=== PATIENT | male | born 1940 | race Caucasian/White ===

== ENCOUNTER 2016-05-08 14:06 | Observation (INO) | payer OTHER ==
[~2016-05-08] VITALS: Ht 167.6 cm; Wt 99.0 kg
[~2016-05-08 14:06] MED LIST: AMLODIPINE BESY10 MG PO; ASPIRIN325 MG PO; CRANBERRY200 MG PO; FLOMAX0.4 MG PO; ISOSORBIDE MONO60 MG PO; LANTUS 3 M100 UNITS1 SC; LIPITOR80 MG PO; LOPRESSOR100 M1 PO; NIACIN1000 MG PO; NITROSTAT0.4 MG SL; NOVOLOG100 UNIT/1 SC; PLAVIX75 MG PO; PRINIVIL5 MG PO; ZANTAC150 MG PO
[2016-05-08] MEDS ORDERED: AMITIZA8 MICROGRA PO (14:28)
[2016-05-08 14:36] LABS: BASOPHIL COUNT 0.1 K/uL (0-0.1); EOSINOPHIL (%) 2.3 % (0-5); EOSINOPHIL COUNT 0.2 K/uL (0-0.3); HEMATOCRIT 39.6 % (38.0-50.0); IMMATURE GRANULOCYTE (%) 0.6 % (0.0-0.7); IMMATURE GRANULOCYTE COUNT 0.1 K/uL; LYMPHOCYTE COUNT 1.1 K/uL (1.0-2.8); MCH 30.6 PG (29.0-34.0); MCHC 31.8 G/DL (30.0-36.0); MCV 96.1 FL (86-99); MEAN PLAT.VOLUME 10.5 uM^3 (9.0-12.4); MONOCYTE (%) 9.7 % (3-12); MONOCYTE COUNT 0.8 K/uL (0-0.8); NEUTROPHIL (%) 72.8 % (45-76); PLATELET COUNT 203 K/uL (156-360); RBC DIS.WIDTH-CV 14.3 % (11.8-14.6); RBC DIS.WIDTH-SD 50.4 % (39-53); RED BLOOD COUNT 4.12 M/uL (4.00-5.50); WHITE BLOOD COUNT 8.3 K/uL (4.1-10.2)
[2016-05-08 14:45] LABS: CHLORIDE 107 mEq/L (99-109); INTER. NORMALIZED RATIO 1.1; POTASSIUM 4.4 mEq/L (3.7-5.4); PROTHROMBIN TIME 11.4 (9.2-11.2); PTT 24.4 (25-32); SODIUM 142 mEq/L (136-147)
[2016-05-08 14:47] LABS: GLUCOSE 134 mg/dL (70-99)
[2016-05-08 14:48] LABS: ANION GAP 11 MEQ/L (2-14)
[2016-05-08 14:51] LABS: GFR ESTIMATE (CALCULATED) 58 mL/min/; UREA NITROGEN (BUN) 28 mg/dL (9-23)
[2016-05-08 14:57] LABS: TROP-I INTERPRETATION NEGATIVE; TROPONIN-I 0.02 ng/mL (0.0-0.30)
[2016-05-08] MEDS ORDERED: NOVOLOG 10100 UNITS/ SC (15:42)
[2016-05-08] MEDS ORDERED: LANTUS 10100 UNITS/ SC (15:43)
[2016-05-08 20:08] VITALS: BP 113/56
[2016-05-08 21:42] LABS: POINT-OF-CARE METER ID UU13113831
[2016-05-08 21:56] LABS: TROP-I INTERPRETATION NEGATIVE; TROPONIN-I 0.02 ng/mL (0.0-0.30)
[2016-05-09 00:10] VITALS: BP 115/58
[2016-05-09 02:49] LABS: TROP-I INTERPRETATION NEGATIVE; TROPONIN-I < 0.01 ng/mL (0.0-0.30)
[2016-05-09 03:58] VITALS: BP 111/56
[2016-05-09 08:04] LABS: POINT-OF-CARE METER ID UU13113831
[2016-05-09 08:22] VITALS: BP 96/51
[2016-05-09 12:06] VITALS: BP 132/62
== END 2016-05-09 13:28 | disposition home or self-care (01) ==
LOC: EME 14:06 → 5WEST 16:26 → EDOF 16:26 → 5WEST 20:07
PROVIDERS: Emergency Medicine; Hospitalist; Internal Medicine
DX: R07.89 Other chest pain (principal); E86.0 Dehydration; I25.10 Atherosclerotic heart disease of native coronary artery without angina pectoris; I10 Essential (primary) hypertension; E11.9 Type 2 diabetes mellitus without complications; E78.5 Hyperlipidemia, unspecified; I73.9 Peripheral vascular disease, unspecified; I25.2 Old myocardial infarction; K58.9 Irritable bowel syndrome, unspecified; Z95.1 Presence of aortocoronary bypass graft; Z95.5 Presence of coronary angioplasty implant and graft; Z87.891 Personal history of nicotine dependence
CPT/HCPCS: 71020; 71275; 74177; 80048; 82948; 84484; 85025; 85610; 85730; 93005; 99281; 99285; G0378; J1650; J1815; J2405; J7030